=== PATIENT | female | born 1950 | race Caucasian/White ===

== ENCOUNTER 2016-10-25 21:12 | Emergency (ER) | payer MEDICARE, MEDICAID ==
[~2016-10-25] VITALS: Ht 157.5 cm; Wt 74.5 kg
[~2016-10-25 21:12] MED LIST: AMBIEN5 MG PO; ASPIRIN325 MG PO; B-12100 MCG PO; BACLOFEN20 MG PO; CIPRODEX1 ML AU; CIPROFLOXACN500 MG PO; CORTISPORIN OTI10 M2 AD; CORTISPORIN OTI10 M2 AU; CORTISPORIN OTI10 ML AD; FLONASE NASAL50 MCG; KETOROLAC60 MG/2 ML IJ; MULTIVITAM10 OR; NAPROSYN500 MG PO; POTASSIUM GLUCONATE PO; PRAVASTATIN10 MG PO; PROZAC20 M1 PO; RETIN-A0.05 % EX; SLOW-MAG PO; SOLU-MEDROL125 MG IM; SOMA250 MG OR; TRAMADOL HCL50 MG PO; VENLAFAXINE37.5 M1 PO; VENLAFAXINE37.5 M2 PO; VITAMIN B-12100 MCG PO; VYVANSE40 MG PO; WAL-PROFEN200 M1; ZANAFLEX4 M2 PO; ZITHROMAX500 MG PO; [UNRECOGNIZED DRUG - OTHER] OR
[2016-10-25] MEDS ORDERED: TRAMADOL HCL50 MG PO (21:22)
[2016-10-25] MEDS ORDERED: NAPROSYN500 MG PO (23:00)
[2016-10-25 23:15] VITALS: BP 134/74
== END 2016-10-25 23:15 | disposition home or self-care (01) ==
LOC: ED 21:12
DX: S86.912A Strain of unspecified muscle(s) and tendon(s) at lower leg level, left leg, initial encounter (principal); R22.42 Localized swelling, mass and lump, left lower limb; M79.662 Pain in left lower leg; X50.9XXA Other and unspecified overexertion or strenuous movements or postures, initial encounter; Y93.H9 Activity, other involving exterior property and land maintenance, building and construction; Y92.007 Garden or yard of unspecified non-institutional (private) residence as the place of occurrence of the external cause

== ENCOUNTER 2018-06-20 16:35 | Observation (INO) | payer MEDICARE, MEDICAID ==
[~2018-06-20] VITALS: Ht 157.5 cm; Wt 86.0 kg
[2018-06-20 17:53] LABS: URINE BILIRUBIN - DIPSTICK NEGATIVE (NEGATIVE); URINE BLOOD DIPSTICK TRACE-INTACT (NEGATIVE); URINE COLOR YELLOW; URINE GLUCOSE - DIPSTICK NEGATIVE (NEGATIVE); URINE KETONE NEGATIVE (NEGATIVE); URINE LEUK ESTERASE TRACE (NEGATIVE); URINE NITRITE - DIPSTICK NEGATIVE (Negative); URINE PROTEIN - DIPSTICK NEGATIVE (NEG-TRACE); URINE SPECIFIC GRAVITY >=1.030; URINE UROBILINOGEN - DIPSTICK 0.2 E.U./dL (0.2)
[2018-06-20 17:55] LABS: URINE CLARITY CLEAR
[2018-06-20 17:57] LABS: HEMOGLOBIN 13.4 g/dl (12.0-16.0); IMMATURE GRANULOCYTES 0.2 % (0.0-5.0); MEAN CORPUSCULAR HGB CONC 31.9 g/L CALC (32.0-36.0); NEUT# 2.69 thou/uL (2.00-7.15); RED BLOOD COUNT 4.47 mill/uL (4.20-5.60); RED CELL DISTRI WIDTH 14.2 % (11.5-15.5)
[2018-06-20 18:19] LABS: ALBUMIN 4.2 g/dL (3.2-5.0); ALKALINE PHOSPHATASE 72 u/l (38-126); ANION GAP 13 (6-22 (CALC)); BILIRUBIN, TOTAL 0.2 mg/dL (0.0-1.4); BUN 17 mg/dL (8-23); BUN/CREATININE RATIO 19 (12-20 (CALC)); CARBON DIOXIDE 27 mmol/l (22-30); CHLORIDE 108 mmol/l (95-108); CREATININE 0.9 mg/dL (0.5-1.0); GFR > 60 ML/MIN (>=60 (CALC)); GFR FOR AFR.AMER. > 60 ML/MIN (>=60 (CALC)); POTASSIUM 3.8 mmol/l (3.5-5.1); SGOT/AST 24 u/l (9-36); SODIUM 144 mmol/l (137-146); TOTAL PROTEIN 7.2 g/dL (6.3-8.2)
[2018-06-20 19:49] VITALS: BP 154/88
[2018-06-20 23:25] VITALS: BP 130/71
[2018-06-20 23:30] VITALS: BP 144/79
[2018-06-20 23:34] VITALS: BP 141/97
[2018-06-21 04:30] VITALS: BP 100/58
[2018-06-21 05:38] LABS: HEMATOCRIT 39.7 % (37.0-47.0); HEMOGLOBIN 12.8 g/dl (12.0-16.0); IMMATURE GRANULOCYTES 0.2 % (0.0-5.0); MEAN CELL VOLUME 93.2 fL CALC (80.0-100.0); MEAN CORPUSCULAR HGB CONC 32.2 g/L CALC (32.0-36.0); NEUT# 2.32 thou/uL (2.00-7.15); RED BLOOD COUNT 4.26 mill/uL (4.20-5.60); RED CELL DISTRI WIDTH 14.2 % (11.5-15.5)
[2018-06-21 05:56] LABS: ALBUMIN 3.8 g/dL (3.2-5.0); ALKALINE PHOSPHATASE 68 u/l (38-126); ANION GAP 12 (6-22 (CALC)); BILIRUBIN, TOTAL 0.4 mg/dL (0.0-1.4); BUN 15 mg/dL (8-23); BUN/CREATININE RATIO 18 (12-20 (CALC)); CARBON DIOXIDE 25 mmol/l (22-30); CHLORIDE 109 mmol/l (95-108); CREATININE 0.8 mg/dL (0.5-1.0); GFR > 60 ML/MIN (>=60 (CALC)); GFR FOR AFR.AMER. > 60 ML/MIN (>=60 (CALC)); MAGNESIUM 2.1 mg/dL (1.6-2.3); POTASSIUM 3.8 mmol/l (3.5-5.1); SGOT/AST 20 u/l (9-36); SODIUM 141 mmol/l (137-146); TOTAL PROTEIN 6.6 g/dL (6.3-8.2)
[2018-06-21 16:30] VITALS: BP 117/61
[2018-06-21] MEDS ORDERED: ANTIVERT PO (16:52)
== END 2018-06-21 18:05 | disposition home or self-care (01) ==
LOC: ED 16:35 → ED-I 18:30 → ED 18:49 → MS2 18:50
PROVIDERS: Family Medicine; ADMIT Internal Medicine Nephrology; ATTEND Internal Medicine Nephrology
DX: R55 Syncope and collapse (principal); R42 Dizziness and giddiness; F51.04 Psychophysiologic insomnia; F31.9 Bipolar disorder, unspecified; F43.10 Post-traumatic stress disorder, unspecified; Z98.1 Arthrodesis status; Z60.2 Problems related to living alone; R51 Headache

== ENCOUNTER 2018-08-03 07:22 | Emergency (ER) | payer MEDICARE, MEDICAID ==
[~2018-08-03] VITALS: Ht 157.5 cm; Wt 81.8 kg
[~2018-08-03 07:22] MED LIST changes: +ANTIVERT PO
[2018-08-03] MEDS ORDERED: TEMAZEPAM30 MG PO (07:35)
[2018-08-03] MEDS ORDERED: TEMAZEPAM15 MG PO (07:35)
[2018-08-03 08:20] VITALS: BP 138/64
== END 2018-08-03 08:28 | disposition home or self-care (01) ==
LOC: ED 07:22
DX: S96.911A Strain of unspecified muscle and tendon at ankle and foot level, right foot, initial encounter (principal); W01.0XXA Fall on same level from slipping, tripping and stumbling without subsequent striking against object, initial encounter; Y92.009 Unspecified place in unspecified non-institutional (private) residence as the place of occurrence of the external cause

== ENCOUNTER 2019-03-01 16:59 | Emergency (ER) | payer MEDICARE, MEDICAID ==
[~2019-03-01] VITALS: Ht 157.5 cm; Wt 88.0 kg
[~2019-03-01 16:59] MED LIST changes: +TEMAZEPAM15 MG PO; +TEMAZEPAM30 MG PO
[2019-03-01] MEDS ORDERED: TRAZODONE XX (17:10)
[2019-03-01] MEDS ORDERED: MEDDOSEPAK PO (17:27)
[2019-03-01] MEDS ORDERED: FLEXERIL PO (17:27)
[2019-03-01 17:30] VITALS: BP 123/67
== END 2019-03-01 17:30 | disposition home or self-care (01) ==
LOC: ED 16:59
DX: M54.5 Low back pain (principal); M62.830 Muscle spasm of back

== ENCOUNTER 2020-01-12 12:08 | Inpatient (IN) | payer MEDICARE, MEDICAID ==
[~2020-01-12] VITALS: Ht 157.5 cm; Wt 86.4 kg
[~2020-01-12 12:08] MED LIST changes: +FLEXERIL PO; +MEDDOSEPAK PO; +TRAZODONE XX
--- NOTE | 2020-01-12 12:48 | NUR ---
PT FOUND IN ER LOBBY, SITTING IN WC, CLUTCHING CHEST, C/O SEVERE UPPER ABD PAIN AND CHEST PAIN. STATES " CHEST PAIN STARTED WHILE WAITING FOR TRIAGE. ONCE PT PLACED IN STRETCHER, PT STOPS C/O CHEST PAIN. STATES " I NEED SOMETHING FOR PAIN"
--- NOTE | 2020-01-12 12:49 | NUR ---
PT IMMEDIATELY TAKEN TO ROOM 8 , CHANGED INTO GOWN FOR BEDSIDE TRIAGE.
[2020-01-12 13:32] LABS: HEMATOCRIT 40.9 % (37.0-47.0); HEMOGLOBIN 13.4 g/dl (12.0-16.0); IMMATURE GRANULOCYTES 0.2 % (0.0-5.0); MEAN CELL VOLUME 90.9 fL CALC (80.0-100.0); MEAN CORPUSCULAR HGB 29.8 pG CALC (26.0-32.0); MEAN CORPUSCULAR HGB CONC 32.8 g/dL CAL (32.0-36.0); NEUT# 9.71 thou/uL (2.00-7.15); RED BLOOD COUNT 4.5 mill/uL (4.20-5.60); RED CELL DISTRI WIDTH 13.7 % (11.5-15.5)
[2020-01-12 13:47] LABS: ALBUMIN 4.5 g/dL (3.2-5.0); ALKALINE PHOSPHATASE 110 u/l (38-126); AMYLASE 62 u/l (30-110); ANION GAP 13 (6-22 (CALC)); BILIRUBIN, TOTAL 0.7 mg/dL (0.0-1.4); BUN 21 mg/dL (8-23); BUN/CREATININE RATIO 34 (12-20 (CALC)); CARBON DIOXIDE 26 mmol/l (22-30); CHLORIDE 102 mmol/l (95-108); CREATININE 0.6 mg/dL (0.5-1.0); GFR > 60 ML/MIN (>=60 (CALC)); GFR FOR AFR.AMER. > 60 ML/MIN (>=60 (CALC)); LIPASE 97 u/l (23-300); POTASSIUM 3.9 mmol/l (3.5-5.1); SGOT/AST 28 u/l (9-36); SODIUM 136 mmol/l (137-146); TOTAL PROTEIN 7.5 g/dL (6.3-8.2)
[2020-01-12 13:53] LABS: INTERNATIONAL NORMALIZED RATIO 0.9 RATIO (0.7-1.3); PROTHROMBIN TIME 9.9 SECONDS (9.0-12.5)
[2020-01-12 15:09] LABS: URINE BILIRUBIN - DIPSTICK NEGATIVE (NEGATIVE); URINE BLOOD DIPSTICK TRACE-INTACT (NEGATIVE); URINE COLOR YELLOW; URINE GLUCOSE - DIPSTICK NEGATIVE (NEGATIVE); URINE KETONE 15 mg/dL (NEGATIVE); URINE LEUK ESTERASE NEGATIVE (NEGATIVE); URINE NITRITE - DIPSTICK NEGATIVE (Negative); URINE PROTEIN - DIPSTICK NEGATIVE (NEG-TRACE); URINE SPECIFIC GRAVITY >=1.030; URINE UROBILINOGEN - DIPSTICK 0.2 E.U./dL (0.2)
--- NOTE | 2020-01-12 15:10 | NUR ---
ATTEMTPED TO CALL REPORT X 2, NO SUCCESS.
--- NOTE | 2020-01-12 15:11 | NUR ---
PT SUPINE IN BED, AIRWAY PATENT, RESP EVEN AND NON LABORED, SKIN P/W/D. PT DENIES CHEST PAIN AT THIS TIME. STATES " ABD PAIN COMES AND GOES" MONITOR SHOWS SR AT THIS TIME. VITAL SIGNS STABLE.
--- NOTE | 2020-01-12 15:53 | NUR ---
REPORT TO GINNY FUENTES.PT TO MED SURG FLOOR VIA STRETCHER IN STABLE CONDITION.
[2020-01-12 16:34] VITALS: BP 136/64
[2020-01-12 19:05] VITALS: BP 114/50
--- NOTE | 2020-01-12 20:15 | NUR ---
PT RESTING IN BED. RESPIRATIONS EVEN AND UNLABORED ON RA. LUNGS SOUND CLEAR. PEDAL PULSES STRONG. PT DENIES ANY PAIN OR DISCOMFORT AT THIS TIME. SAFETY PRECAUTIONS IN PLACE. WILL CONTINUE TO MONITOR.
[2020-01-13] VITALS (11 sets, daily range): BP systolic 91–124; BP diastolic 46–64
--- NOTE | 2020-01-13 00:25 | NUR ---
PT RESTING IN BED, FREE FROM DISTRESS AT THIS TIME. BED ALARM ACTIVE FOR PT SAFETY. WILL CONTINUE TO MONITOR.
--- NOTE | 2020-01-13 04:35 | NUR ---
PT RESTING IN BED, FREE FROM DISTRESS AT THIS TIME. BED ALARM ACTIVE FOR PT SAFETY. WILL CONTINUE TO MONITOR.
[2020-01-13 05:44] LABS: ALBUMIN 3.6 g/dL (3.2-5.0); ALKALINE PHOSPHATASE 87 u/l (38-126); ANION GAP 11 (6-22 (CALC)); BILIRUBIN, TOTAL 0.8 mg/dL (0.0-1.4); BUN 17 mg/dL (8-23); BUN/CREATININE RATIO 23 (12-20 (CALC)); CARBON DIOXIDE 26 mmol/l (22-30); CHLORIDE 102 mmol/l (95-108); CREATININE 0.7 mg/dL (0.5-1.0); GFR > 60 ML/MIN (>=60 (CALC)); GFR FOR AFR.AMER. > 60 ML/MIN (>=60 (CALC)); POTASSIUM 4.2 mmol/l (3.5-5.1); SGOT/AST 26 u/l (9-36); SODIUM 134 mmol/l (137-146); TOTAL PROTEIN 6.5 g/dL (6.3-8.2)
--- NOTE | 2020-01-13 06:45 | NUR ---
REPORT RECEIVED FROM RICARDO FUENTES. CARE ASSUMED.
--- NOTE | 2020-01-13 07:15 | NUR ---
PT IS RESTING IN BED AWAKE. PT IS ALERT AND ORIENTED X3. SHIFT ASSESSMENT COMPLETED AT THIS TIME. IV PATENT X1. CALL LIGHT IN REACH. WILL CONTINUE TO MONITOR.
--- NOTE | 2020-01-13 11:15 | NUR ---
PT TO OR VIA STRETCHER ACCOMPANIED BY ELYSIA FUENTES.
--- NOTE | 2020-01-13 12:30 | NUR ---
Patient contacted to verify if she is taking trazodone. No answer. Will follow up
--- NOTE | 2020-01-13 14:45 | NUR ---
PT RETURNED FROM OR VIA STRETCHER ACCOMPANIED BY OR NURSE. PT AMBULATED TO RESTROOM TO VOID THEN AMBULATED BACK TO BED WITH MINIMAL ASSISTANCE. PT IS ALERT AND ORIENTED X3. PT PLACED ON POST OP VITALS. PT MEDICATED FOR PAIN PER MAR. PT PLACED ON BED ALARM FOR PT SAFETY. CALL LIGHT IN REACH. WILL CONTINUE TO MONITOR.
--- NOTE | 2020-01-13 15:36 | NUR ---
PT RESTING IN BED AWAKE. RESP ARE EVEN AND UNLABORED NO DSITRESS NOTED. CALL LIGHT IN REACH. WILL CONTINUE TO MONITOR.
--- NOTE | 2020-01-13 19:30 | NUR ---
PT RESTING IN BED, 02 2L NC, PT ALERT AND ORIENTED X3, DISCUSSED POC, PT STATES SHE HAS BEEN TOLERATING PO FLUIDS WELL AND DOES NOT WANT IV. CHOCOLATE PUDDING PROVIDED. IV SL. PT REQUESTING TO SHOWER. ABD INCISION CDI SPD MANAGER WITH DERMABOND. PT WILL WAIT FOR TEACHING MANAGER TO ASSIST WITH SHOWER. ASSESSMENT COMPLETED, CALL LIGHT IN REACH,CONTINUE TO MONITOR.
--- NOTE | 2020-01-13 21:09 | NUR ---
PT RESTING IN BED, NO SIGNS OF DISTRESS NOTED, RESP EVEN AND UNLABORED. PT STATES SHE DOES NOT WANT TO TAKE SHOWER AT THIS TIME. VOICES NO NEEDS OR COMPLAINTS AT THIS TIME, CALL LIGHT IN REACH,CONTINUE TO MONITOR.
--- NOTE | 2020-01-13 23:34 | NUR ---
PT C/O PAIN 02/28 PT MEDICATED PER SEP. CALL LIGHT IN REACH,CONTINUE TO MONITOR.
[2020-01-14 03:25] VITALS: BP 76/44
--- NOTE | 2020-01-14 03:48 | NUR ---
ASSISTED PT FROM BATHROOM, PT STATES SHE FEELS DIZZY NOTED BP LOW, ENCOUARGED PT TO STAY IN BED AND CALL FOR ASSISTANCE, IV ANTIBIOTIC INFUSING, BED ALARM FOR SAFETY, PT PLACED IN [place], CALL LIGHT IN REACH,CONTINUE TO MONITOR.
--- NOTE | 2020-01-14 05:35 | NUR ---
PT STATES SHE FEELS BETTER BUT IS HUNGRY, PT REPOSITIONED IN BED, PT GIVEN SANDWICH, NO SIGNS OF DISTRESS NOTED, RESP EVEN AND UNLABORED. CALL LIGHT IN REACH,CONTINUE TO MONITOR.
[2020-01-14 08:05] VITALS: BP 97/50
--- NOTE | 2020-01-14 08:05 | NUR ---
ASSESSMENT IS COMPLTED: IV SITE IS FREE FROM REDNESS OR EDEMA. HR IS REG,PULSES ARE STRONG X4, ABD IS SOFT WITH ACTIVE BS. DRESSING IS FLOW SPECIALIST CDI. WITH DERMABOND. BREATH SOUNDS ARE CLEAR BILATERALLY, CONTINUE TO OSEBRVE AND MONITOR.,
[2020-01-14] MEDS ORDERED: TRAZODONE100 MG PO (09:14)
--- NOTE | 2020-01-14 09:49 | NUR ---
LEFT A MESSAGE ON DR BOLAÑOS PHONE AND ALSO WITH COREY STRANGE IN OR RE: PT .
--- NOTE | 2020-01-14 11:19 | NUR ---
SPOKE WITH DR BOLAÑOS RE: PT C/O BLOOD IN THE URINE. WILL ORDER AN URINE. INFORMED PT OF THE CALL. SHE IS C/O NAUSEA, AND DIZZINESS. ESCORTED TO THE BATHROOM. CONTINUE TO OSEBRVE AND MONITOR.
--- NOTE | 2020-01-14 11:55 | NUR ---
ATTEMPTED TO RESTART IV DUE TO LEAKING. X2 UNSUCCESSFUL. HAVING MARGARET ROUTE AIDE ATTEMPT.
--- NOTE | 2020-01-14 12:00 | NUR ---
PT IS RELAXING IN BED , NO DISTRESS NOTED. IV SITE BEGAN TO LEAK STOPPED INFUSION.
--- NOTE | 2020-01-14 12:25 | NUR ---
PT WAS ATTEMPTED AGAIN UNSUCESSFUL. REFUSES TO BE RESTUCK WITH AN IV, WANTING TO TALK WITH THE DR.
--- NOTE | 2020-01-14 13:00 | NUR ---
SPOKE WITH DR BOLAÑOS RE: PT NOT WANTING ANOTHER IV. WILL ORDER A PICC LINE AND [address] WAY CELIS FOR BLADDER IRRIGATION. HE HAS ALREADY SPOKE WITH DR BURNS WILL DO PROCEDURE TOMORROW.
--- NOTE | 2020-01-14 13:18 | NUR ---
PT BEING TRANSPORTED TO HAVE A PICC LINE PLACEMENT
--- NOTE | 2020-01-14 14:09 | NUR ---
PT RETURNED FROM HAVING PICC LINE PLACEMENT. IN SHRUT[place]. PT TOLERATED WELL., CONTINUE TO OSBERVE AND MONITOR.
[2020-01-14 15:24] VITALS: BP 102/63
--- NOTE | 2020-01-14 15:34 | NUR ---
[address] CELIS PLACED ON PT. PT TOLERATED WELL USED STERILE TECHNIQUE. ATTEMPTED TO GET A UA SPECIMEN PRIOR TO IRRIGATION. SENT TO THE LAB AND HAD SPILLED IN THE BAG.CONTINUE TO OSBERVE AND MONITOR.
--- NOTE | 2020-01-14 16:00 | NUR ---
PICC LINE IS WORKING WELL WITH BLOOD RETURN. NO DISTRES NOTE. IV FLUIDS INFUSING. CONTINUE TO OSBERVE AND MONITOR.
--- NOTE | 2020-01-14 18:15 | NUR ---
CONTINUOUS IRRIGATION ON CELIS , PT TOLERATING WELL. URINE STARTED YARY AND IMMEDIATELY WENT TO CLEAR.,
[2020-01-14 19:10] VITALS: BP 84/51
--- NOTE | 2020-01-14 19:30 | NUR ---
PT RESTING IN BED, NO SIGNS OF DISTRESS NOTED, RESP EVEN AND UNLABORED. PT ALERT AND ORIENTED X3, DISCUSSED POC AND CBI, CBI BAG NUMBER 4 DRAINING TO GRAIVITY, CELIS CLEAR NO CLOTS NOTED. BOLUS INFUSING TO CENTRAL LINE. INCISIONS TO ABD CDI; ALESSANDRO WITH DERMABOND. PT STATES SHE PASSED GAS TODAY, STATES SHE IS VERY HUNGRY. TV DINNER PROVIDED. CALL LIGHT IN REACH,CONTINUE TO MONITOR.
--- NOTE | 2020-01-14 22:34 | NUR ---
PT RESTING IN BED, VOICES NO NEEDS OR COMPLAINTS AT THIS TIME, CALL LIGHT IN REACH,CONTINUE TO MONITOR.
[2020-01-14 23:35] VITALS: BP 79/52
[2020-01-15] VITALS (10 sets, daily range): BP systolic 110–148; BP diastolic 48–88
--- NOTE | 2020-01-15 | NUR ---
PT RESTING IN BED WITH EYES CLOSED, NO SIGNS OF DISTRESS NOTED, RESP EVEN AND UNLABORED. CBI CONTINUES, CALL LIGHT IN REACH,CONTINUE TO MONITOR.
--- NOTE | 2020-01-15 03:42 | NUR ---
PT SITTING IN BED WATCHING TV, NO SIGNS OF DISTRESS NOTED, RESP EVEN AND UNLABORED. CALL LIGHT IN REACH,CONTINUE TO MONITOR.
--- NOTE | 2020-01-15 06:00 | NUR ---
REPORT RECEIVED FROM MALVIN WELLINGTON. CARE ASSUMED.
[2020-01-15 06:15] LABS: IMMATURE GRANULOCYTES 0.6 % (0.0-5.0); MEAN CORPUSCULAR HGB 30.3 pG CALC (26.0-32.0); MEAN CORPUSCULAR HGB CONC 30.9 g/dL CAL (32.0-36.0); NEUT# 8.48 thou/uL (2.00-7.15); RED BLOOD COUNT 3.17 mill/uL (4.20-5.60); RED CELL DISTRI WIDTH 14.3 % (11.5-15.5)
[2020-01-15 06:20] LABS: HEMATOCRIT 31.1 % (37.0-47.0); HEMOGLOBIN 9.6 g/dl (12.0-16.0); MEAN CELL VOLUME 98.1 fL CALC (80.0-100.0)
--- NOTE | 2020-01-15 06:30 | NUR ---
PT SITTIGN UP IN BED WATCHING TV. PT IS ALERT AND ORIENTED X3. SHIFT ASSESSMENT COMPLETED AT THIS TIME. IV PATENT X1. CBI DRAINING CLEAR AT THIS TIME. CALL LIGHT IN REACH. WILL CONTINUE TO MONITOR.
[2020-01-15 06:33] LABS: ALKALINE PHOSPHATASE 124 u/l (38-126); ANION GAP 7 (6-22 (CALC)); BILIRUBIN, TOTAL 0.5 mg/dL (0.0-1.4); BUN 15 mg/dL (8-23); BUN/CREATININE RATIO 17 (12-20 (CALC)); CARBON DIOXIDE 27 mmol/l (22-30); CHLORIDE 102 mmol/l (95-108); CREATININE 0.9 mg/dL (0.5-1.0); GFR > 60 ML/MIN (>=60 (CALC)); GFR FOR AFR.AMER. > 60 ML/MIN (>=60 (CALC)); POTASSIUM 3.6 mmol/l (3.5-5.1); SGOT/AST 25 u/l (9-36); SODIUM 133 mmol/l (137-146); TOTAL PROTEIN 5.4 g/dL (6.3-8.2)
[2020-01-15 06:42] LABS: ALBUMIN 2.8 g/dL (3.2-5.0)
--- NOTE | 2020-01-15 07:40 | NUR ---
CBI RUNNING CLEAR. CBI SLOWED AT THIS TIME.
--- NOTE | 2020-01-15 08:15 | NUR ---
PT INSURANCE CASE MANAGER LIGHT STATING SHE WANTS TO SEE THE DOCTOR. PT STATES THAT IT IS SATURDAY AND SHE SHOULD BE HOME TODAY. EXPLAINED THAT TODAY IS SATURDAY. EXPLAINED THAT I WILL NOTIFY THE MD THAT SHE NEEDS TO SPEAK WITH HIM. DR BOLAÑOS NOTIFIED. CBI CONTINUES TO FLOW CLEAR AND YARY.
--- NOTE | 2020-01-15 09:10 | NUR ---
PT TO OR VIA BED ACCONMPANIED BY OR NURSE X2.
--- NOTE | 2020-01-15 11:43 | NUR ---
REPORT TO MONTY WELLINGTON.
--- NOTE | 2020-01-15 12:00 | NUR ---
PT IS IN THE OR. WAITING FOR THE PROCEDURE
--- NOTE | 2020-01-15 13:52 | NUR ---
PT RETURNED FROM OR VIA BED WITH CELIS AND IRRIGATION INTACT. NO DISTRESS NOTED. PT C/O CONSTIPATION. INQUIRED WITH PT RE: TO DISCHARGE IF SHE WANTS TO WAIT UNTIL TOMORROW AFTER THE CELIS OR TODAY." PT WILL WAIT UNTIL TOMORROW BUT WANTS TO LEAVE IMMEDIATELY IN THE AM. CONTINUE TO OSBERVE AND MONITOR.
--- NOTE | 2020-01-15 14:09 | NUR ---
INFORMED DR LUNDBERG RE: CONSULT FROM DR BOLAÑOS . WITH PT C/O RESTLESS LEGS.
--- NOTE | 2020-01-15 16:00 | NUR ---
PT IS RESTING IN BED WITH NO DISTRESS NOTED. IV SITE IS FREE FROM REDNESS OR EDEMA.
--- NOTE | 2020-01-15 16:36 | NUR ---
PT IS C/O LEAKING ON THE CELIS WOULD LIKE TO HAVE THE CELIS AND STENT REMOVED TODAY IF POSSIBLE. NOT TO HAVE TO GO TO THE OFFICE. WILL CALL DR BURNS RE: CELIS. DRAINING PINK URINE AT THIS TIME.
--- NOTE | 2020-01-15 16:40 | NUR ---
LEFT A MESSAGE FOR DR BURNS TO RETURN MY CALL.
--- NOTE | 2020-01-15 16:44 | NUR ---
DR BURNS CALLED BACK AND STATED" IT IS NORMAL FOR A LITTLE LEAKAGE, AND THE CELIS STAYS IN UNTIL TOMORROW."
--- NOTE | 2020-01-15 17:15 | NUR ---
SPOKE WITH THE PT . AND INFORMED OF THE CONVERSATION WITH DR BURNS. VERBALIZED UNDERSTANDING. RE: CELIS NEEDING TO STAY THE NIGHT AND WILL BE TAKEN OUT TOMORROW". THE STENT STAYS IN UNTIL HE SEES HER IN THE PT VERN OFFICE ON THE January. PT VERBALIZED UNDERSTANDING. CONTINEU TO OBSERVE AND MONITOR. ASKED FOR PAIN MEDICATION TO "KNOCK HER OUT, SO SHE CAN FORGET ABOUT ALL OF THIS".
--- NOTE | 2020-01-15 17:49 | NUR ---
CBI IS DRAINING PINK TO LIGHT PINK AT THIS TIME. PT IS TOLERATING WELL.
--- NOTE | 2020-01-15 18:49 | NUR ---
PT WANTING TO GET A SHOWER. COMPLAINING TO THE SPREAD CUTTER RE: "I SHOULDN'T HAVE ANY SURGERY, AND I AM TIRED OF BEING IN THIS HOSPITAL". WENT IN TO DISCONNECT THE IV SITE AND FLUSHED WELL. PT IS AMBULATING TO THE BATHROOM WITH NO DISTRESS .
--- NOTE | 2020-01-15 20:30 | NUR ---
PT RETURNING TO BED FROM SHOWER, RESPIRATIONS EVEN AND UNLABORED ON RA. LUNGS SOUND CLEAR. PEDAL PULSES STRONG. PT DENIES ANY PAIN OR DISCOMFORT AT THIS TIME. CBI RUNNING WITH TUBING 3/4 CLAMPED, DRAINING PINK/CLEAR URINE TO GRAVITY. PICC IN UPPER RIGHT ARM PATIENT AND APPEARS HEALTHY. PT PROVIDED WITH ICE WATER, WARM PRUNE JUICE, WARM WATER, AND A CUP OF ICE PER REQUEST. SAFETY PRECAUTIONS IN PLACE. WILL CONTINUE TO MONITOR.
--- NOTE | 2020-01-16 00:12 | NUR ---
PT RESTING IN BED, NO S/S OF DISTRESS AT THIS TIME. SAFETY PRECAUTIONS IN PLACE. WILL CONTINUE TO MONITOR.
[2020-01-16 03:33] VITALS: BP 147/71
--- NOTE | 2020-01-16 04:30 | NUR ---
PT RESTING INE BED. NO S/S OF DISTRESS AT THIS TIME. SAFETY PRECAUTIONSIN PLACE. WILL CONTINUE TO MONITOR.
[2020-01-16 07:17] VITALS: BP 125/67
--- NOTE | 2020-01-16 07:30 | NUR ---
PT RESTING IN BED, NO SIGNS OF DISTRESS NOTED, RESP EVEN AND UNLABORED. PT ALERT AND ORIENTED X3, PT ASSISTED TO SIDE OF BED, PT STATES SHE IS READY TO BE DISCHARGED, SHE WANTS TO GET HOME TO HER CATS AND DOG. ABD INCISION X4 CDI; ALESSANDRO WITH DERMABOND. CBI IN PLACE DRAINING TO GRAVITY, PER MD ORDERS IF CLEAR/PINK DC AT 0800, STOPPED CBI AT THIS TIME WILL RETURN TO REMOVE CATHETER. ASSESSMENT COMPLETED, CALL LIGHT IN REACH,CONTINUE TO MONITOR.
--- NOTE | 2020-01-16 08:13 | NUR ---
CELIS DISCONTINUED CATHETER INTACT. PT IMMEDIATELY WENT TO [place] [facility] [place]. EXPLAINED IT WILL TAKE A LITTLE BIT.
--- NOTE | 2020-01-16 08:43 | NUR ---
CALL MADE IFORMED THAT CBI WAS DISCONTINUED, CELIS REMOVED AND PT VOIDED PINK URINE, PT MAY BE DISCHARGED.
--- NOTE | 2020-01-16 09:15 | NUR ---
PT AMBULATING IN ROOM, PICC LINE REMOVED BY RN, PT TOLERATED WELL. DISCUSSED DISCHARGE INSTRUCTIONS WITH PT VERBALIZED UNDERSTANDING. PT EAGER TO LEAVE, STATES "WHERE DO I SIGN SO I CAN LEAVE". INFORMED PT OF F/U INSTRUCTIONS, PRESCRIPTION GIVEN, WORK EXCUSE WELL. WHEELCHAIR TO BE BROUGHT BY [employer] TO TAKE PT DOWNSTAIRS.
--- NOTE | 2020-01-16 09:16 | NUR ---
INFORMED PT THAT DR BOLAÑOS CALLED TO CHECK ON HER . PT STATES" I AM WONDERFUL". DISCHARGE INSTRUCTIONS GIVEN BY MALVIN WELLINGTON AND BEING TAKEN DOWN BY ASHLYN
--- NOTE | 2020-01-16 09:17 | NUR ---
Discharge instructions given. Patient verbalizes understanding of same. Discharged in stable condition via Wheelchair to Home with friend. All belongings sent with pt.
== END 2020-01-16 09:17 | disposition home or self-care (01) | DRG 660 ==
LOC: ED 12:08 → ED-I 14:40 → ED 14:49 → MS2 14:50
PROVIDERS: ADMIT Surgery; ATTEND Surgery
PROC: 0FT44ZZ Resection of Gallbladder, Percutaneous Endoscopic Approach (ICD-10-PCS; 2020-01-13)
PROC: 05HB33Z Insertion of Infusion Device into Right Basilic Vein, Percutaneous Approach (ICD-10-PCS; 2020-01-14)
PROC: 0TBB8ZX Excision of Bladder, Via Natural or Artificial Opening Endoscopic, Diagnostic (ICD-10-PCS; principal; 2020-01-15)
PROC: 0T768DZ Dilation of Right Ureter with Intraluminal Device, Via Natural or Artificial Opening Endoscopic (ICD-10-PCS; 2020-01-15)
PROC: BT14ZZZ Fluoroscopy of Kidneys, Ureters and Bladder (ICD-10-PCS; 2020-01-15)
DX: N32.89 Other specified disorders of bladder (principal); K80.00 Calculus of gallbladder with acute cholecystitis without obstruction; I95.81 Postprocedural hypotension; K82.A1 Gangrene of gallbladder in cholecystitis; G25.81 Restless legs syndrome; Z20.828 Contact with and (suspected) exposure to other viral communicable diseases
CPT/HCPCS: C1769; G0378; J0131; J1100; Q9967

== ENCOUNTER → 2020-05-20 | Day surgery (SDC) | payer MEDICARE, MEDICAID ==
[~2020-05-20] MED LIST changes: +TRAZODONE100 MG PO
== END | disposition home or self-care (01) ==
LOC: ORM 05:53
PROVIDERS: ATTEND Urology
DX: N39.46 Mixed incontinence (principal); N32.81 Overactive bladder; Z53.09 Procedure and treatment not carried out because of other contraindication
CPT/HCPCS: J1956

== ENCOUNTER 2020-10-14 16:27 | Observation (INO) | payer OTHER, MEDICARE, MEDICAID ==
[~2020-10-14] VITALS: Ht 160 cm; Wt 91.0 kg
--- NOTE | 2020-10-14 16:40 | NUR ---
DOMINGO TO ROOM VIA EMS AND PHYSICIAN NOTIFIED OF PATIENT STATUS
[2020-10-14 17:55] LABS: IMMATURE GRANULOCYTES 0.2 % (0.0-5.0); MEAN CELL VOLUME 95.6 fL CALC (80.0-100.0); MEAN CORPUSCULAR HGB 29.5 pG CALC (26.0-32.0); MEAN CORPUSCULAR HGB CONC 30.9 g/dL CAL (32.0-36.0); NEUT# 2.35 thou/uL (2.00-7.15); RED BLOOD COUNT 4.3 mill/uL (4.20-5.60)
[2020-10-14 18:00] LABS: HEMATOCRIT 41.1 % (37.0-47.0); HEMOGLOBIN 12.7 g/dl (12.0-16.0)
[2020-10-14 18:15] LABS: ALKALINE PHOSPHATASE 92 u/l (38-126); ANION GAP 12 (6-22 (CALC)); BILIRUBIN, TOTAL 0.6 mg/dL (0.0-1.4); BUN 28 mg/dL (8-23); BUN/CREATININE RATIO 32 (12-20 (CALC)); CARBON DIOXIDE 29 mmol/l (22-30); CHLORIDE 99 mmol/l (95-108); CREATININE 0.9 mg/dL (0.5-1.0); GFR > 60 ML/MIN (>=60 (CALC)); GFR FOR AFR.AMER. > 60 ML/MIN (>=60 (CALC)); POTASSIUM 4.2 mmol/l (3.5-5.1); SGOT/AST 30 u/l (9-36); SODIUM 137 mmol/l (137-146)
[2020-10-14 18:16] LABS: ALBUMIN 4.6 g/dL (3.2-5.0)
--- NOTE | 2020-10-14 19:50 | NUR ---
EDUCATED PATIENT REGARDING PLAN, SITTING IN BED STATES "I FEEL MUCH BETTER"
[2020-10-14 20:10] VITALS: BP 156/84
--- NOTE | 2020-10-14 20:15 | NUR ---
REPORT GIVEN TO MS STAFF AT THIS TIME
--- NOTE | 2020-10-14 20:19 | NUR ---
Admission Note Report Given to: ANIYA Transported by: X Wheelchair Stretcher Transported with: X Nurse Transporter X Patent IV O2 X Wood Fuel Pelletizer Location: ICU X [facility]
[2020-10-14 22:06] LABS: URINE BILIRUBIN - DIPSTICK NEGATIVE (NEGATIVE); URINE BLOOD DIPSTICK SMALL (NEGATIVE); URINE COLOR YELLOW; URINE GLUCOSE - DIPSTICK NEGATIVE (NEGATIVE); URINE KETONE 15 mg/dL (NEGATIVE); URINE LEUK ESTERASE NEGATIVE (NEGATIVE); URINE PROTEIN - DIPSTICK NEGATIVE (NEG-TRACE); URINE SPECIFIC GRAVITY 1.025; URINE UROBILINOGEN - DIPSTICK 0.2 E.U./dL (0.2)
[2020-10-14 22:12] LABS: URINE NITRITE - DIPSTICK NEGATIVE (Negative)
[2020-10-14 22:24] LABS: URINE RBC 0-2 RBC/hpf (0-5)
[2020-10-15] VITALS: BP 99/56
--- NOTE | 2020-10-15 01:19 | NUR ---
PATIENT ARRIVED TO FLOOR VIA WC AND ED STAFF. AMBULATED TO BED. ALERT AND ORIENTED X4. ABLE TO MAKE NEEDS KNOWN. RESPIRATIONS EASY ON ROOM AIR. DENEIS PAIN. VAD CURRENTLY INFUSING IVF AT 80ML/HR. SKIN WARM DRY INTACT. AT DINNER WITHOUT DIFFICULTY. BED IN LOW POSITION. CALL LIGHT WITHIN REACH.
[2020-10-15 04:00] VITALS: BP 106/66
[2020-10-15 06:19] LABS: HEMATOCRIT 38.9 % (37.0-47.0); HEMOGLOBIN 12.1 g/dl (12.0-16.0); IMMATURE GRANULOCYTES 0.2 % (0.0-5.0); MEAN CELL VOLUME 95.6 fL CALC (80.0-100.0); MEAN CORPUSCULAR HGB 29.7 pG CALC (26.0-32.0); MEAN CORPUSCULAR HGB CONC 31.1 g/dL CAL (32.0-36.0); NEUT# 1.5 thou/uL (2.00-7.15); RED BLOOD COUNT 4.07 mill/uL (4.20-5.60); RED CELL DISTRI WIDTH 13.9 % (11.5-15.5)
--- NOTE | 2020-10-15 06:31 | NUR ---
ATTEMPTED NEW VAD RIGHT WRIST WITHOUT SUCCESS. PATIENT DID NOT TOLERATED WELL. VAD LEFT A/C STILL PATENT AND INFUSING NS AT 80ML/HR ORDERED.
[2020-10-15 06:40] LABS: ALBUMIN 3.8 g/dL (3.2-5.0); ALKALINE PHOSPHATASE 78 u/l (38-126); ANION GAP 9 (6-22 (CALC)); BILIRUBIN, TOTAL 0.7 mg/dL (0.0-1.4); BUN 21 mg/dL (8-23); BUN/CREATININE RATIO 28 (12-20 (CALC)); CALCULATED LDLCHOLESTEROL 137 mg/dL (62-129 (CALC)); CARBON DIOXIDE 29 mmol/l (22-30); CHLORIDE 103 mmol/l (95-108); CHOLESTEROL HDL RATIO 5.6 (<4.4 (CALC)); CREATININE 0.8 mg/dL (0.5-1.0); GFR > 60 ML/MIN (>=60 (CALC)); GFR FOR AFR.AMER. > 60 ML/MIN (>=60 (CALC)); HDL CHOLESTEROL 38 mg/dL (>=40); SGOT/AST 23 u/l (9-36); SODIUM 137 mmol/l (137-146); TOTAL CHOLESTEROL 211 mg/dl (0-199); TOTAL PROTEIN 6.6 g/dL (6.3-8.2); TOTAL TRIGLYCERIDES 181 mg/dl (30-149); VLDL CHOLESTROL 36 mg/dl (0-48 (CALC))
--- NOTE | 2020-10-15 06:51 | NUR ---
VAD RIGHT A/C INFILTRATED AND DISCONTINUED. PATIENT DOES NOT WANT THIS NURSE TO ATTEMPT A NEW IV. REQUESTING A DIFFERENT NURSE.
[2020-10-15 07:16] VITALS: BP 119/58
--- NOTE | 2020-10-15 08:05 | NUR ---
ASSESSMENT DONE. PATIENT IS A&O X3. PATIENT DENIES PAIN AT THIS TIME. RESPS EVEN AND UNLABORED. PATIENT STATED SHE IS READY TO GO HOME. TELE IN PLACE. TOLD PATIENT WE HAVE TO WAIT FOR DOCTOR. PATIENT VERBALIZED UNDERSTANDING. PATIENT DENIES ANY OTHER NEEDS AT THIS TIME. CALL LIGHT IN REACH.
[2020-10-15] MEDS ORDERED: VYVANSE50 MG PO (08:28)
[2020-10-15] MEDS ORDERED: MELOXICAM7.5 MG PO (08:29)
[2020-10-15 10:45] VITALS: BP 120/76
--- NOTE | 2020-10-15 12:15 | NUR ---
Discharge instructions given. Patient verbalizes understanding of same. Discharged in stable condition via Wheelchair to Home with staff. All belongings sent with pt.
== END 2020-10-15 12:15 | disposition home or self-care (01) | DRG 313 ==
LOC: ED 16:27 → ED-I 17:07 → ED 17:07 → MS2 19:29
PROVIDERS: ADMIT Internal Medicine; ATTEND Internal Medicine
DX: R07.9 Chest pain, unspecified (principal); T67.5XXA Heat exhaustion, unspecified, initial encounter; R53.1 Weakness; X30.XXXA Exposure to excessive natural heat, initial encounter; Y92.481 Parking lot as the place of occurrence of the external cause; Y99.0 Civilian activity done for income or pay; Z20.822 Contact with and (suspected) exposure to COVID-19
CPT/HCPCS: J1650

== ENCOUNTER 2021-09-29 23:56 | Emergency (ER) | payer MEDICARE, MEDICAID ==
[~2021-09-29] VITALS: Ht 157.5 cm; Wt 90.0 kg
[~2021-09-29 23:56] MED LIST changes: +MELOXICAM7.5 MG PO; +VYVANSE50 MG PO
[2021-09-30 00:06] VITALS: BP 131/59
[2021-09-30 00:15] VITALS: BP 139/72
[2021-09-30] MEDS ORDERED: CIPROFLOXACN500 MG PO (00:54)
[2021-09-30] MEDS ORDERED: CLEOCIN300 MG PO (00:54)
[2021-09-30 01:28] VITALS: BP 146/93
== END 2021-09-30 01:30 | disposition home or self-care (01) ==
LOC: ED 23:56
PROC: 0HQGXZZ Repair Left Hand Skin, External Approach (ICD-10-PCS; principal; 2021-09-30)
DX: S61.452A Open bite of left hand, initial encounter (principal); W54.0XXA Bitten by dog, initial encounter; Y92.009 Unspecified place in unspecified non-institutional (private) residence as the place of occurrence of the external cause